=== PATIENT | male | born 1995 | race Two or more races ===

== ENCOUNTER 2018-12-07 21:21 | Emergency (ER) | payer BC ==
[2018-12-07] MEDS ORDERED: KETOROLAC TROMETHAMINE INJ/PF 30 MG/1 ML SDV IV ONE (22:27)
[2018-12-07] MEDS ORDERED: ONDANSETRON HCL INJ/PF 4 MG/2 ML SDV IV ONE (22:27)
[2018-12-07] MEDS: NORMAL SALINE 1000 ML 1,000 ML IV PRN (22:43)
[2018-12-07 23:04] LABS: APPEARANCE,URINE SLIGHTLY-CLOUDY; BILIRUBIN,URINE NEGATIVE (NEGATIVE); COLOR,URINE YELLOW; GLUCOSE, URINE NEGATIVE (NEGATIVE); KETONES,URINE NEGATIVE (NEGATIVE); LEUKOCYTE ESTERASE,URINE TRACE (NEGATIVE); NITRITE,URINE NEGATIVE (NEGATIVE); PROTEIN,URINE 30 mg/dL (NEGATIVE); URINE SPECIFIC GRAVITY 1.016; UROBILINOGEN,URINE NEGATIVE mg/dL (<2.0)
[2018-12-07 23:06] LABS: ABSOLUTE BASOPHILS # (AUTO) 0.1 10^3/uL (0.0-0.2); ABSOLUTE EOSINOPHILS # (AUTO) 0.1 10^3/uL (0.0-0.6); ABSOLUTE LYMPHOCYTES (AUTO) 1.4 10^3/uL (0.5-4.7); ABSOLUTE MONOCYTES (AUTO) 0.9 10^3/uL (0.1-1.4); BASOPHILS % (AUTO) 0.4 % (0-2); EOSINOPHILS % (AUTO) 0.7 % (0-6); HEMATOCRIT 41.7 % (37.9-51.0); HEMOGLOBIN 13.9 g/dL (13.5-17.0); LYMPHOCYTES % (AUTO) 10.5 % (13-45); MEAN CORPUSCULAR HEMOGLOBIN 28.7 pg (27.0-33.4); MEAN CORPUSCULAR HGB CONC 33.4 g/dL (32.0-36.0); MEAN CORPUSCULAR VOLUME 86 fl (80-97); MONOCYTES % (AUTO) 6.6 % (3-13); PLATELET COUNT 281 10^3/uL (150-450); RED BLOOD COUNT 4.85 10^6/uL (4.35-5.55); RED CELL DISTRIBUTION WIDTH 12.9 % (11.5-14.0); SEGMENTED NEUTROPHILS % (AUTO) 81.8 % (42-78); TOTAL CELLS COUNTED % (AUTO) 100 %; WHITE BLOOD COUNT 13.4 10^3/uL (4.0-10.5)
[2018-12-07 23:19] LABS: ALANINE AMINOTRANSFERASE 45 U/L (21-72); ALKALINE PHOSPHATASE 93 U/L (38-126); ANION GAP 16 (5-19); ASPARTATE AMINO TRANSFERASE 31 U/L (17-59); BILIRUBIN,DIRECT 0.3 mg/dL (0.0-0.4); BILIRUBIN,TOTAL 0.8 mg/dL (0.2-1.3); BLOOD UREA NITROGEN 8 mg/dL (7-20); CALCIUM 9.4 mg/dL (8.4-10.2); CARBON DIOXIDE 27 mmol/L (22-30); CHLORIDE 101 mmol/L (98-107); GLUCOSE 117 mg/dL (75-110); POTASSIUM 3.6 mmol/L (3.6-5.0); SODIUM 143.9 mmol/L (137-145); TOTAL PROTEIN 8.2 g/dL (6.3-8.2)
[2018-12-08] MEDS ORDERED: CEFTRIAXONE 1 GM/D5W RTU 1 GM/50 ML RTUPB IV ONE
[2018-12-08] MEDS: NORMAL SALINE 1000 ML 1,000 ML IV PRN (00:02)
--- NOTE | 2018-12-08 00:13 | ER Document Report ---
ED GI/ - General Chief Complaint: Possible Kidney Stone Stated Complaint: FLANK PAIN Time Seen by Provider: 12/07/18 23:41 TRAVEL OUTSIDE OF THE [place] IN LAST 30 DAYS: No - HPI Notes: 12/08/18 00:03 Patient is a 23-year-old male who presents to the emergency department with a chief complaint of left flank pain. Patient states that he noticed the pain around 12 PM this afternoon and got significantly worse around 5 PM. Patient states he has had chills and nausea without vomiting. Patient denies fever. 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 Patient reports that at the time he was told he had multiple stones and severe hydronephrosis. Patient does report blood in the urine. Reports that his urologist is Dr. Veto Nowak with [facility] he saw him was after his surgery. - Related Data Allergies/Adverse Reactions: No Known Allergies Allergy (Verified 12/07/18 22:51) Past Medical History - General Information source: Patient - Social History Smoking Status: Never Smoker Cigarette use (# per day): No Chew tobacco use (# tins/day): No Frequency of alcohol use: None Drug Abuse: None Lives with: Family Family History: None - Past Medical History Cardiac Medical History: Reports: None Pulmonary Medical History: Reports: None EENT Medical History: Reports: None Neurological Medical History: Reports: None Endocrine Medical History: Reports: None Renal/ Medical History: Reports: Hx Kidney Stones Malignancy Medical History: Reports None GI Medical History: Reports: None Musculoskeletal Medical History: Reports None Skin Medical History: Reports None Psychiatric Medical History: Reports: None Traumatic Medical History: Reports: None Infectious Medical History: Reports: None Past Surgical History: Reports: Other - UPJ obstruction surgery with lithotripsy Review of Systems - Review of Systems Constitutional: See HPI EENT: No symptoms reported Cardiovascular: No symptoms reported Respiratory: No symptoms reported Gastrointestinal: See HPI Genitourinary: No symptoms reported Male Genitourinary: No symptoms reported Musculoskeletal: No symptoms reported Skin: No symptoms reported Hematologic/Lymphatic: No symptoms reported Neurological/Psychological: No symptoms reported Physical Exam - Vital signs Vitals: Temp Pulse Resp BP Pulse Ox 98.1 F 67 20 126/88 H 97 12/07/18 21:56 12/07/18 21:56 12/07/18 21:56 12/07/18 21:56 12/07/18 21:56 Interpretation: Normal - Notes Notes: GENERAL: Well-appearing, well-nourished and in no acute distress. HEAD: Atraumatic, normocephalic. EYES: Pupils equal round and reactive to light, extraocular movements intact, sclera anicteric, conjunctiva are normal. ENT: Moist mucous membranes. NECK: Normal range of motion, supple without lymphadenopathy or JVD. LUNGS: Breath sounds clear to auscultation bilaterally and equal. No wheezes rales or rhonchi. HEART: Regular rate and rhythm without murmurs, rubs or gallops. ABDOMEN: Soft, nontender, normoactive bowel sounds. No guarding, no rebound. No masses appreciated. BACK: + CVA tenderness to left flank. GENITOURINARY: Deferred. EXTREMITIES: Normal range of motion, no pitting or edema. No clubbing or cyanosis. NEUROLOGICAL: Cranial nerves II through XII grossly intact. Normal speech, normal gait. PSYCH: Normal mood, normal affect. SKIN: Warm, Dry, normal turgor, no rashes or lesions noted. Course - Re-evaluation Re-evalutation: 12/08/18 00:00 Discussed urinalysis and blood work results with patient. Due to patient's history of severe hydronephrosis, multiple large stones and probable developing infection in his urine I do believe that a CT scan is needed. Discussed this with patient and mother who is at bedside. Both parties are comfortable with a CT as he reports the left flank pain was worse than his normal kidney stone pain. 12/08/18 00:[address] results with patient and mother. Will need to consult Urology. Patient requesting I contact [facility] as this is where he saw Dr. Veto Nowak last. 12/08/18 00:59 Contacted [facility] for consult and possible transfer. 12/08/18 01:[address] Hector Landrum at [facility] regarding patient case to include mild leukocytosis, trace leuks in the urine with WBCs, and CT report to include a 1.0 cm left distal ureteral stone causing moderate to severe obstruction and an engorged left kidney that measures 16 cm compared with 11 cm on the right, and multiple small renal stones. He states that the patient does not need emergent surgical intervention or hospitalization at this time. He recommends a urine culture and strict return precautions to include fever, rigors, uncontrolled pain and vomiting, inability to urinate or any worsening of signs and symptoms. He does not recommend sending the patient home on antibiotics. He states to tell the patient if he has not passed the stone in one week to make a follow up appointment. 01:42 Discussed with patient and mother the recommending by Dr. Hector Landrum. Patient is starting to develop more left flank pain - will medicate. Will place patient on oral pain medication, nausea medication, Flomax and provide a urine strainer at discharge. Strict return precautions discussed with patient and mother. Both verbalize understanding and denies questions. Informed mother and patient to call Urology tomorrow to make an appointment. 02:15 Patient resting comfortably on stretcher, states his pain was relieved after the Toradol injection. Patient is nontoxic appearing, skin pink and dry. Patient stable at discharge. - Vital Signs Vital signs: Temp Pulse Resp BP Pulse Ox 98.2 F 73 15 136/67 H 98 12/08/18 01:53 12/08/18 01:53 12/08/18 01:53 12/08/18 01:53 12/08/18 01:53 - Laboratory Result Diagrams: 12/07/18 22:43 12/07/18 22:43 Laboratory results interpreted by me: 12/07/18 12/07/18 12/07/18 22:43 22:43 22:45 WBC 13.4 H Seg Neutrophils % 81.8 H Lymphocytes % 10.5 L Absolute Neutrophils 11.0 H Glucose 117 H Urine Protein 30 H Urine Blood LARGE H Ur Leukocyte Esterase TRACE H 12/08/18 00:22 Patient has a mild leukocytosis of white blood cell count of 13.4. Patient does have a large amount of blood in his urine and trace leukocytes. - Diagnostic Test Radiology reviewed: Image reviewed, Reports reviewed Radiology results interpreted by me: 12/08/18 00:55 CT shows a 1.0 cm left distal ureteral stone causing moderate to severe high grade obstruction. The left kidney is engorged measuring 16 compared with 11 cm on the right. Discharge - Discharge Clinical Impression: Renal stones, Ureteral stone with hydronephrosis Condition: Stable Disposition: HOME, SELF-CARE Additional Instructions: Today you were seen in the Emergency Department for left flank pain. We obtained a CT scan which showed a 10 mm left distal ureteral stone that is causing moderate to severe obstruction. It was also noted that you had multiple smaller renal stones on the left. I spoke with a Hector Landrum ( he is with Urology) at [facility] regarding your CT results, blood work and urinalysis. He states that at this time you do not need emergent surgical intervention or surgery. He does recommend that you follow up with urology at [facility] within a week and to place you on strict return precautions. The strict return precautions include but are not limited to: fever, rigors (severe chills), uncontrolled vomiting or pain, inability to urinate or empty bladder or any other concerning signs or symptoms. A urine culture was added on and will result within the next 48 hrs. You will be contacted if this is positive. If this is positive you need to seek medical attention immediately per Dr. Hector Landrum. You are being prescribed Percocet for your severe pain, Zofran for your nausea and Flomax to help potentially pass the stone. Prescriptions: Ondansetron [Zofran Odt 4 mg Tablet] 1 tab PO Q6 #15 tab.rapdis Oxycodone HCl/Acetaminophen [Percocet 5-325 mg Tablet] 1 tab PO Q4H PRN #15 tablet PRN Reason: Tamsulosin HCl [Flomax 0.4 mg Cap.sr] 0.4 mg PO DAILY #7 cap.sr.24h Forms: Return to Work
[2018-12-08] MEDS ORDERED: CEFTRIAXONE INJ 1000 MG VIAL IV ONE (00:35)
--- NOTE | 2018-12-08 00:46 | RADIOLOGY REPORT (SQ) ---
EXAM DESCRIPTION: CT ABDOMEN PELVIS WITHOUT IV CONTRAST COMPLETED DATE/TME: 12/08/2018 00:01 CLINICAL HISTORY: 23 years Male, left flank pain Comparison: None. Technique: No contrast. Coronal and sagittal reformat. This exam was performed according to our departmental dose-optimization program, which includes automated exposure control, adjustment of the mA and/or kV according to patient size and/or use of iterative reconstruction technique.[facility]: Dose Right [facility]: CareDose [facility]: Dose Right [facility]: Teradose 4D [facility]: Particle LIMITATIONS: None Findings: A 1.0 x 0.4 x 0.4 cm, 411-HU, left distal ureteral stone is within 3 cm of the left ureterovesicular junction and causes moderate to severe left hydronephrosis and moderate diffuse left hydroureter. Additional left renal stones measure up to 1.1 cm each. Engorged left kidney measures 16 cm compared with 11 cm on the right. No ascites. Normal appendix. No gross evidence of gallbladder inflammation or hepatobiliary obstruction. No bowel obstruction. No evidence of abdominal aortic aneurysm. Unenhanced lower thorax, abdominopelvic structures, and musculoskeleton appear otherwise grossly unremarkable. Impression: A 1.0 cm left distal ureteral stone causes moderate to high grade obstruction.
[2018-12-08] MEDS ORDERED: KETOROLAC TROMETHAMINE INJ/PF 30 MG/1 ML SDV IV ONE (01:26)
[2018-12-08] MEDS ORDERED: OXYCODONE-ACETAMINOPHEN 5-325 MG TABLET PO ONE (02:03)
[2018-12-08] MEDS ORDERED: TAMSULOSIN HCL 0.4 MG CAP.SR.24H PO ONE (02:03)
[2018-12-08] MEDS ORDERED: PROMETHAZINE HCL 25 MG TABLET PO ONE (02:03)
[2018-12-08] MEDS ORDERED: HYDROCODONE/ACETAMINOPHEN 5-325 MG (6 TAB/ER DISP) PO PRN (02:05)
[2018-12-08 02:32] VITALS: BP 136/67
== END 2018-12-08 02:32 | disposition home or self-care (01) ==
LOC: ER 21:21
DX: N13.2 Hydronephrosis with renal and ureteral calculous obstruction (principal); R10.9 Unspecified abdominal pain; R11.0 Nausea; R68.83 Chills (without fever); Z87.442 Personal history of urinary calculi
CPT/HCPCS: 96376; 99284; 96361; 96375; 96365; 36415; 87086; 83690; 85025; 80053; 81001; 74176; J1885 ×2; J0696; J2405; J7030 ×2